=== PATIENT | male | born 1935 | race Caucasian/White ===

== ENCOUNTER 2020-02-16 12:45 | Emergency (ER) | payer OTHER ==
[2020-02-16 13:54] LABS: APPEARANCE,URINE Clear (CLEAR); BILIRUBIN,URINE Negative (NEGATIVE); COLOR,URINE Yellow (YELLOW); GLUCOSE, URINE (UA) Negative (NEGATIVE); KETONES,URINE Trace mg/dL (NEGATIVE); LEUKOCYTE ESTERASE ,URINE Negative (NEGATIVE); NITRATE,URINE Negative (NEGATIVE); OCCULT BLOOD,URINE Negative (NEGATIVE); PROTEIN,URINE Negative (NEGATIVE)
[2020-02-16 14:09] LABS: BASOPHILS % (AUTO) 0.9 % (0.0-5.0); EOSINOPHILS % (AUTO) 8.6 % (0.0-8.0); HEMATOCRIT 39.2 % (42-54); LYMPHOCYTES % (AUTO) 21.4 % (21.0-51.0); MEAN CORPUSCULAR HEMOGLOBIN 30.2 pg (27.0-33.0); MEAN CORPUSCULAR HGB CONC 33.7 g/dL (32.0-36.0); MEAN CORPUSCULAR VOLUME 89.7 fL (79-99); MONOCYTES % (AUTO) 7.2 % (3.0-13.0); NEUTROPHILS % (AUTO) 61.4 % (40.0-77.0); PLATELET COUNT (AUTO) 219 K/uL (130-400); RED BLOOD CELL COUNT(AUTO) 4.37 MIL/uL (4.50-6.20); RED CELL DISTRIBUTION WIDTH 12.3 % (11.0-15.5); WHITE BLOOD COUNT (AUTO) 9.4 K/uL (4.8-10.8)
[2020-02-16 14:24] LABS: CREATININE 1.2 mg/dL (0.5-1.5); POTASSIUM 4.5 mmol/L (3.5-5.1)
[2020-02-16 14:29] LABS: ALBUMIN 4.2 g/dL (3.5-5.0); BILIRUBIN,TOTAL 0.4 mg/dL (0.2-1.0); TOTAL PROTEIN, SERUM 7.1 g/dL (6.0-8.3)
[2020-02-16 14:32] LABS: BACTERIA,URINE Rare /HPF (None Seen); RBC,URINE None Seen /HPF (0-1); SQUAMOUS EPITHELIAL CELL,UR 0-2 /HPF (0-2); WBC,URINE None Seen /HPF (0-1)
== END 2020-02-16 16:24 | disposition home or self-care (01) ==
LOC: EDBD 12:45 → EDH 12:45
DX: R33.9 Retention of urine, unspecified (principal); E11.9 Type 2 diabetes mellitus without complications; Z90.49 Acquired absence of other specified parts of digestive tract; Z88.6 Allergy status to analgesic agent; Z87.891 Personal history of nicotine dependence
CPT/HCPCS: 36415; 51702; 80053; 81001; 85025; 87088

== ENCOUNTER 2022-01-09 08:13 | Day surgery (SDC) | payer MEDICARE, OTHER ==
[2022-01-06 10:40] VITALS: BP_SYST 149; BP_SYST 164; BP_DIAS 78; BP_DIAS 82
[2022-01-06 11:10] LABS: BASOPHILS % (AUTO) 1.1 % (0.0-5.0); EOSINOPHILS % (AUTO) 12.1 % (0.0-8.0); HEMATOCRIT 41.9 % (42-54); LYMPHOCYTES % (AUTO) 29.1 % (21.0-51.0); MEAN CORPUSCULAR HEMOGLOBIN 29.7 pg (27.0-33.0); MEAN CORPUSCULAR HGB CONC 33.4 g/dL (32.0-36.0); MONOCYTES % (AUTO) 8.6 % (3.0-13.0); NEUTROPHILS % (AUTO) 48.6 % (40.0-77.0); PLATELET COUNT (AUTO) 198 K/uL (130-400); RED BLOOD CELL COUNT(AUTO) 4.71 MIL/uL (4.50-6.20); RED CELL DISTRIBUTION WIDTH 12.9 % (11.0-15.5); WHITE BLOOD COUNT (AUTO) 10.2 K/uL (4.8-10.8)
[2022-01-06 11:18] LABS: POTASSIUM 4.9 mmol/L (3.5-5.1)
[2022-01-09] VITALS (16 sets, daily range): BP systolic 108–135; BP diastolic 64–74
[~2022-01-09] VITALS: Ht 172.7 cm; Wt 102.1 kg
[~2022-01-09 08:13] MED LIST: AEC81 PO; AMIL5TAB8 PO; CYAN50009 PO; DUTA.5 PO; ICOS1CAP PO; L.AC1CAP6 PO; LORA10TA7 PO; METO-408 PO; MV-M1TAB20 PO; PRAV20TA4 PO; SITA1TAB6 PO; TAMS-1 PO; UBID100C10 PO
[2022-01-09] MEDS ORDERED: 0.9%NACL 1000ML 1,000 ML IV ONE (09:24)
[2022-01-09] MEDS ORDERED: CEFTRIAXONE 1G VIAL ONE (09:24)
[2022-01-09] MEDS: CEFTRIAXONE 1G VIAL IVP ONE ×2 (09:28→12:36)
[2022-01-09] MEDS ORDERED: MIDAZOLAM HCL 1 MG/ML 2ML VIAL ONE (11:37)
[2022-01-09] MEDS ORDERED: FENTANYL CITRATE PF 50 MCG/1 ML 2ML VIAL ONE ×2 (11:37→12:23)
[2022-01-09] MEDS ORDERED: ONDANSETRON 4MG INJ ONE (11:37)
[2022-01-09] MEDS ORDERED: LIDOCAINE PF 100MG/5ML (2%) SYRINGE 5ML ONE (11:42)
[2022-01-09] MEDS ORDERED: PROPOFOL 10 MG/ML 20ML VIAL IV ONE (11:42)
[2022-01-09] MEDS ORDERED: ROCURONIUM 10MG/1ML SYR 10 MG/ML ML ONE (11:43)
[2022-01-09] MEDS ORDERED: OPIUM/BELLADONNA ALKALOIDS 1 EACH SUPP.RECT RC ONE (12:27)
[2022-01-09] MEDS ORDERED: NEOSTIGMINE 5MG/5ML SYR IV ONE (12:39)
[2022-01-09] MEDS ORDERED: GLYCOPYRROLATE 1 MG/5 ML SYRINGE ONE (12:39)
[2022-01-09] MEDS ORDERED: PHENAZOPYRIDINE HCL 200 MG TABLET ONE (13:57)
== END 2022-01-09 14:30 | disposition home or self-care (01) ==
LOC: DAH 08:13
PROVIDERS: ATTEND Urology
DX: N40.1 Benign prostatic hyperplasia with lower urinary tract symptoms (principal); R33.8 Other retention of urine; R35.1 Nocturia; I10 Essential (primary) hypertension; E11.9 Type 2 diabetes mellitus without complications; N13.8 Other obstructive and reflux uropathy; Z79.899 Other long term (current) drug therapy; Z88.6 Allergy status to analgesic agent; Z87.891 Personal history of nicotine dependence; Z79.84 Long term (current) use of oral hypoglycemic drugs; Z98.890 Other specified postprocedural states
CPT/HCPCS: 36415; 52648; 80048; 82948 ×2; 85025; 87635; 93005; A4215; A4221; A4222; A4223; A4340; A4354; A4358; A4510; A4600; A4663; A5113; A6260; C9803; J0696; J2001; J2250; J2405; J2704; J2710; J3010 ×2; J3490; J7030; J7120

== ENCOUNTER → 2022-11-20 | Outpatient (CLI) | payer MEDICARE ==
[~2022-11-20] MED LIST changes: -AEC81 PO; -AMIL5TAB8 PO; -CYAN50009 PO; +DILT180C63 PO; -DUTA.5 PO; -ICOS1CAP PO; +IOHEXOL 350 MG/ML 100ML INFUS..BTL IV ONE; -L.AC1CAP6 PO; +LEVO-70 PO; -METO-408 PO; -MV-M1TAB20 PO; -PRAV20TA4 PO; +RIVA2.5T PO; -SITA1TAB6 PO; -UBID100C10 PO
== END | disposition home or self-care (01) ==
LOC: RAH 11:19
PROVIDERS: ATTEND Family Medicine
DX: J44.9 Chronic obstructive pulmonary disease, unspecified (principal)
CPT/HCPCS: 71270; Q9967

== ENCOUNTER 2023-10-07 18:18 | Inpatient (IN) | payer MEDICARE ==
[~2023-10-07] VITALS: Ht 172.7 cm; Wt 87.3 kg
[~2023-10-07 18:18] MED LIST changes: -IOHEXOL 350 MG/ML 100ML INFUS..BTL IV ONE
[2023-10-07 19:15] LABS: CREATININE 1.4 mg/dL (0.5-1.5); POTASSIUM 5.6 mmol/L (3.5-5.1)
[2023-10-07 19:19] LABS: ALBUMIN 4.6 g/dL (3.5-5.0); BILIRUBIN,TOTAL 0.6 mg/dL (0.2-1.0); TOTAL PROTEIN, SERUM 8.6 g/dL (6.0-8.3)
[2023-10-07 19:27] LABS: BASOPHILS # (AUTO) 0.02 K/uL (0.00-0.20); BASOPHILS % (AUTO) 0.2 % (0.0-5.0); EOSINOPHILS # (AUTO) 0.01 K/uL (0.00-0.70); EOSINOPHILS % (AUTO) 0.1 % (0.0-8.0); HEMATOCRIT 45.3 % (42-54); IMMATURE GRANULOCYTE ABSOLUTE 0.11 K/uL (0-1); LYMPHOCYTES # (AUTO) 0.5 K/uL (1.0-4.8); LYMPHOCYTES % (AUTO) 4.1 % (21.0-51.0); MEAN CORPUSCULAR HEMOGLOBIN 28.4 pg (27.0-33.0); MEAN CORPUSCULAR VOLUME 88.8 fL (79-99); MONOCYTES # (AUTO) 0.1 K/uL (0.1-1.0); NEUTROPHILS # (AUTO) 11.7 K/uL (1.8-7.7); NEUTROPHILS % (AUTO) 93.7 % (40.0-77.0); PLATELET COUNT (AUTO) 175 K/uL (130-400); RED CELL DISTRIBUTION WIDTH 15.5 % (11.0-15.5); WHITE BLOOD COUNT (AUTO) 12.4 K/uL (4.8-10.8)
[2023-10-07] MEDS ORDERED: FAMOTIDINE 20MG VIAL IV ONE (20:30)
[2023-10-07] MEDS ORDERED: ONDANSETRON 4MG INJ IVP ONE (20:30)
[2023-10-07] MEDS ORDERED: MORPHINE 2 MG SYG IVP ONE (20:30)
[2023-10-07] MEDS ORDERED: INSULIN HUMULIN R 100 UNIT/ML 3ML IV ONE (20:30)
[2023-10-07] MEDS ORDERED: ZOSYN 3.375GM +NS 50ML IVPB ONE (21:00)
[2023-10-07 21:19] LABS: ABG BASE EXCESS -22.3 mmol/L (-2.0-3.0); ABG HCO3 6.1 mmol/L (21.0-28.0); ABG OXYGEN SATURATION 95.9 % (95.0-99.0); ABG PCO2 22 mmHg (35-48); ABG PH 7.073 (7.35-7.450); DEVICE COMMENT R BRACHIAL RA; PO2, ARTERIAL BG 94.4 mmHg (83.0-108.0); VENT MODE, BG RN MALDONADO RA (ROOM AIR)
[2023-10-07 21:24] LABS: APPEARANCE,URINE CLEAR (CLEAR); BILIRUBIN,URINE NEGATIVE (NEGATIVE); COLOR,URINE LIGHT-YELLOW (YELLOW); GLUCOSE, URINE (UA) >=1000 mg/dL (NEGATIVE); KETONES,URINE 150 mg/dL (NEGATIVE); LEUKOCYTE ESTERASE ,URINE NEGATIVE Leu/uL (NEGATIVE); NITRATE,URINE NEGATIVE (NEGATIVE); PROTEIN,URINE 20 mg/dL (NEGATIVE); UROBILINOGEN,URINE 0.2 mg/dL (0.2-1.0)
[2023-10-07 21:25] LABS: ADD UA MICROSCOPIC YES
[2023-10-07 21:29] LABS: MUCUS,URINE RARE LPF (None Seen); WBC,URINE 0-1 /HPF (0-1)
[2023-10-07] MEDS ORDERED: 0.9%NACL 1000ML 1,000 ML IV ONE (21:30)
[2023-10-07] MEDS ORDERED: INSULIN REGULAR, HUMAN 3ML 100 UNIT in 0.9%NACL 100ML 99 ML IV STA ×2 (21:34)
[2023-10-07] MEDS ORDERED: MEPERIDINE-PF 25 MG/ML SYG IM PRN (22:00)
[2023-10-07] MEDS ORDERED: MORPHINE 2 MG SYG IV PRN (22:00)
[2023-10-07] MEDS ORDERED: INSULIN REGULAR, HUMAN 3ML 100 UNIT in 0.9%NACL 100ML 100 ML IV SCH ×2 (22:00)
[2023-10-07] MEDS ORDERED: ONDANSETRON 4MG INJ IV PRN (22:00)
[2023-10-07] MEDS ORDERED: POTASSIUM CHLORIDE 10MEQ/100ML 100 ML IV PRN (22:00)
[2023-10-07] MEDS ORDERED: MEPERIDINE-PF 25 MG/ML SYG IVP PRN (22:00)
[2023-10-07] MEDS ORDERED: MORPHINE 4 MG SYG IV PRN (22:00)
[2023-10-07] MEDS ORDERED: ACETAMINOPHEN 325 MG TAB PO PRN ×2 (22:00)
[2023-10-07] MEDS ORDERED: MAGNESIUM 2GM PREMIX 50ML 50 ML IV SCH (22:00)
[2023-10-07] MEDS ORDERED: 0.9%NACL 1000ML 1,000 ML IV SCH (22:00)
[2023-10-07 22:27] LABS: CREATININE 1.4 mg/dL (0.5-1.5); POTASSIUM 5.1 mmol/L (3.5-5.1)
[2023-10-07] MEDS: SODIUM BICARB 50MEQ 50ML VIAL 150 MEQ in DEXTROSE 5%-WATER 1,000 ML IVPB SCH (22:27)
[2023-10-08] VITALS (56 sets, daily range): BP systolic 97–142; BP diastolic 56–75; PULSE 87–116; RESP 10–20; O2SAT 96–98
[2023-10-08 01:28] LABS: CREATININE 1.3 mg/dL (0.5-1.5); POTASSIUM 4.9 mmol/L (3.5-5.1)
[2023-10-08] MEDS: SODIUM BICARB 50MEQ 50ML VIAL 150 MEQ in DEXTROSE 5%-WATER 1,000 ML IVPB SCH ×2 (03:23→23:59)
[2023-10-08] MEDS: D5W-1/2 NS/20MEQ KCL 1,000 ML IV SCH ×2 (05:08→09:19)
[2023-10-08] MEDS ORDERED: TAMS-1 PO (06:47)
[2023-10-08] MEDS ORDERED: FAMO40TA7 PO (06:47)
[2023-10-08] MEDS ORDERED: DUTA0.5C37 PO (06:47)
[2023-10-08] MEDS ORDERED: PRAV40TA3 PO (06:47)
[2023-10-08] MEDS ORDERED: SITA1TAB6 PO (06:47)
[2023-10-08] MEDS ORDERED: METO25TA6 PO ×2 (06:47)
[2023-10-08] MEDS ORDERED: MULT-1367 PO (06:47)
[2023-10-08] MEDS ORDERED: LORA10TA7 PO (06:47)
[2023-10-08] MEDS ORDERED: DAPA5TAB PO (06:47)
[2023-10-08] MEDS ORDERED: ASPI-1197 PO (06:47)
[2023-10-08] MEDS ORDERED: BISA-189 PO (06:47)
[2023-10-08 07:01] LABS: BASOPHILS # (AUTO) 0.02 K/uL (0.00-0.20); BASOPHILS % (AUTO) 0.2 % (0.0-5.0); EOSINOPHILS # (AUTO) 0.03 K/uL (0.00-0.70); EOSINOPHILS % (AUTO) 0.3 % (0.0-8.0); HEMATOCRIT 36.9 % (42-54); IMMATURE GRANULOCYTE ABSOLUTE 0.08 K/uL (0-1); LYMPHOCYTES # (AUTO) 0.8 K/uL (1.0-4.8); LYMPHOCYTES % (AUTO) 6.9 % (21.0-51.0); MEAN CORPUSCULAR HEMOGLOBIN 28.2 pg (27.0-33.0); MEAN CORPUSCULAR HGB CONC 33.6 g/dL (32.0-36.0); MEAN CORPUSCULAR VOLUME 84.1 fL (79-99); MONOCYTES # (AUTO) 0.3 K/uL (0.1-1.0); MONOCYTES % (AUTO) 2.8 % (3.0-13.0); NEUTROPHILS # (AUTO) 10.7 K/uL (1.8-7.7); NEUTROPHILS % (AUTO) 89.1 % (40.0-77.0); PLATELET COUNT (AUTO) 158 K/uL (130-400); RED BLOOD CELL COUNT(AUTO) 4.39 MIL/uL (4.50-6.20); RED CELL DISTRIBUTION WIDTH 15.4 % (11.0-15.5)
[2023-10-08 07:12] LABS: CREATININE 1.2 mg/dL (0.5-1.5); PHOSPHORUS 2.5 mg/dL (2.5-4.9); POTASSIUM 4.2 mmol/L (3.5-5.1)
[2023-10-08] MEDS: ENOXAPARIN SODIUM 40 MG/0.4 ML SYRINGE SQ SCH (09:19)
[2023-10-08] MEDS: FAMOTIDINE 20MG VIAL IV SCH (09:19)
[2023-10-08 10:30] LABS: CREATININE 1.2 mg/dL (0.5-1.5); POTASSIUM 4.1 mmol/L (3.5-5.1)
[2023-10-08] MEDS: AZITHROMYCIN 500MG+NS 250ML 250 ML IVPB SCH (13:56)
[2023-10-08] MEDS: ZOSYN 3.375GM +NS 50ML IV SCH ×2 (13:56→20:40)
[2023-10-08 15:28] LABS: POTASSIUM 4.9 mmol/L (3.5-5.1)
[2023-10-08] MEDS ORDERED: LACTATED RINGERS 1000ML IV ONE (16:00)
[2023-10-08 19:39] LABS: CREATININE 1.1 mg/dL (0.5-1.5)
[2023-10-08] MEDS: ATORVASTATIN 10 MG TABLET PO SCH (20:40)
[2023-10-08] MEDS: METOPROLOL TARTRATE 25 MG TAB PO SCH (20:43)
[2023-10-08 23:09] LABS: POTASSIUM 3.5 mmol/L (3.5-5.1)
[2023-10-09] VITALS (19 sets, daily range): BP systolic 94–131; BP diastolic 50–82; PULSE 85–119; RESP 9–20; O2SAT 95–96
[2023-10-09 01:01] LABS: POTASSIUM 3.5 mmol/L (3.5-5.1)
[2023-10-09 01:10] LABS: ABG BASE EXCESS 1.1 mmol/L (-2.0-3.0); ABG HCO3 24.7 mmol/L (21.0-28.0); ABG OXYGEN SATURATION 95.3 % (95.0-99.0); ABG PCO2 36 mmHg (35-48); ABG PH 7.453 (7.35-7.450); PO2, ARTERIAL BG 72.1 mmHg (83.0-108.0); VENT MODE, BG ROOM AIR (ROOM AIR)
[2023-10-09] MEDS: D5W-1/2 NS/20MEQ KCL 1,000 ML IV SCH (01:54)
[2023-10-09 04:26] LABS: BASOPHILS # (AUTO) 0.02 K/uL (0.00-0.20); BASOPHILS % (AUTO) 0.2 % (0.0-5.0); EOSINOPHILS # (AUTO) 0.32 K/uL (0.00-0.70); EOSINOPHILS % (AUTO) 3.2 % (0.0-8.0); HEMATOCRIT 37.8 % (42-54); IMMATURE GRANULOCYTE ABSOLUTE 0.05 K/uL (0-1); LYMPHOCYTES # (AUTO) 0.8 K/uL (1.0-4.8); LYMPHOCYTES % (AUTO) 7.9 % (21.0-51.0); MEAN CORPUSCULAR HEMOGLOBIN 27.8 pg (27.0-33.0); MEAN CORPUSCULAR HGB CONC 33.6 g/dL (32.0-36.0); MEAN CORPUSCULAR VOLUME 82.7 fL (79-99); MONOCYTES # (AUTO) 0.2 K/uL (0.1-1.0); MONOCYTES % (AUTO) 1.7 % (3.0-13.0); NEUTROPHILS # (AUTO) 8.7 K/uL (1.8-7.7); NEUTROPHILS % (AUTO) 86.5 % (40.0-77.0); PLATELET COUNT (AUTO) 134 K/uL (130-400); RED BLOOD CELL COUNT(AUTO) 4.57 MIL/uL (4.50-6.20); RED CELL DISTRIBUTION WIDTH 15.2 % (11.0-15.5)
[2023-10-09 04:36] LABS: CREATININE 0.9 mg/dL (0.5-1.5); POTASSIUM 3.3 mmol/L (3.5-5.1)
[2023-10-09] MEDS ORDERED: POTASSIUM CHLORIDE 10MEQ/100ML 100 ML IV ONE (05:29)
[2023-10-09] MEDS ORDERED: 0.9%NACL 1000ML 1,000 ML IV SCH (05:30)
[2023-10-09] MEDS: ZOSYN 3.375GM +NS 50ML IV SCH ×3 (06:13→20:57)
[2023-10-09] MEDS: FAMOTIDINE 20MG VIAL IV SCH (07:44)
[2023-10-09] MEDS: TAMSULOSIN HCL 0.4 MG CAP.ER.24H PO SCH (07:44)
[2023-10-09] MEDS: METOPROLOL TARTRATE 25 MG TAB PO SCH ×2 (07:44→20:57)
[2023-10-09] MEDS: THIAMINE HCL 100 MG/ML 2ML VIAL IVP SCH (07:44)
[2023-10-09] MEDS: ENOXAPARIN SODIUM 40 MG/0.4 ML SYRINGE SQ SCH (07:45)
[2023-10-09] MEDS: (Dutasteride 0.5 MG) PO SCH (07:45)
[2023-10-09] MEDS: ASPIRIN 81MG CHEW TAB PO SCH (07:45)
[2023-10-09] MEDS: LORATADINE 10 MG TABLET PO SCH (07:45)
[2023-10-09] MEDS: INSULIN GLARGINE 100 UNITS/ML 10 ML VIAL SQ SCH ×2 (07:46→22:06)
[2023-10-09] MEDS: INSULIN HUMULIN R 100 UNIT/ML 3ML SQ SCH ×4 (07:48→22:09)
[2023-10-09] MEDS ORDERED: POTASSIUM CHLORIDE 10% ELIXIR 20 MEQ/15 ML UDCUP ONE (08:00)
[2023-10-09] MEDS ORDERED: POTASSIUM CHLORIDE 10% ELIXIR 20 MEQ/15 ML UDCUP PO PRN (08:00)
[2023-10-09] MEDS ORDERED: POTASSIUM CHLORIDE 20MEQ/100ML 100 ML IV PRN (08:00)
[2023-10-09] MEDS ORDERED: TRAZODONE HCL 100 MG TABLET PO PRN (11:00)
[2023-10-09] MEDS: AZITHROMYCIN 500MG+NS 250ML 250 ML IVPB SCH (12:03)
[2023-10-09] MEDS: ATORVASTATIN 10 MG TABLET PO SCH (20:57)
[2023-10-10] VITALS (8 sets, daily range): BP systolic 128–154; BP diastolic 70–86; PULSE 83–115; RESP 16–22; O2SAT 96–97
[2023-10-10] MEDS ORDERED: HALOPERIDOL INJ 5 MG/ML VIAL ONE (02:55)
[2023-10-10] MEDS ORDERED: HALOPERIDOL INJ 5 MG/ML VIAL IV SCH (03:00)
[2023-10-10] MEDS: ZOSYN 3.375GM +NS 50ML IV SCH ×3 (03:55→20:11)
[2023-10-10] MEDS: INSULIN HUMULIN R 100 UNIT/ML 3ML SQ SCH ×4 (06:40→21:17)
[2023-10-10] MEDS: INSULIN GLARGINE 100 UNITS/ML 10 ML VIAL SQ SCH ×2 (06:41→21:16)
[2023-10-10 07:00] LABS: BASOPHILS # (AUTO) 0.04 K/uL (0.00-0.20); BASOPHILS % (AUTO) 0.6 % (0.0-5.0); EOSINOPHILS % (AUTO) 4.5 % (0.0-8.0); IMMATURE GRANULOCYTE ABSOLUTE 0.04 K/uL (0-1); LYMPHOCYTES # (AUTO) 0.9 K/uL (1.0-4.8); LYMPHOCYTES % (AUTO) 13.9 % (21.0-51.0); MEAN CORPUSCULAR HEMOGLOBIN 28.6 pg (27.0-33.0); MEAN CORPUSCULAR HGB CONC 33.7 g/dL (32.0-36.0); MEAN CORPUSCULAR VOLUME 84.7 fL (79-99); MONOCYTES # (AUTO) 0.3 K/uL (0.1-1.0); MONOCYTES % (AUTO) 4.1 % (3.0-13.0); NEUTROPHILS # (AUTO) 5.1 K/uL (1.8-7.7); NEUTROPHILS % (AUTO) 76.3 % (40.0-77.0); PLATELET COUNT (AUTO) 139 K/uL (130-400); RED BLOOD CELL COUNT(AUTO) 4.13 MIL/uL (4.50-6.20); RED CELL DISTRIBUTION WIDTH 15.2 % (11.0-15.5); WHITE BLOOD COUNT (AUTO) 6.6 K/uL (4.8-10.8)
[2023-10-10 07:36] LABS: CREATININE 0.7 mg/dL (0.5-1.5); PHOSPHORUS 2.2 mg/dL (2.5-4.9); POTASSIUM 3.4 mmol/L (3.5-5.1)
[2023-10-10 08:20] LABS: MAGNESIUM 1.6 mg/dL (1.80-2.40)
[2023-10-10] MEDS: THIAMINE HCL 100 MG/ML 2ML VIAL IVP SCH (08:51)
[2023-10-10] MEDS: METOPROLOL TARTRATE 25 MG TAB PO SCH ×2 (08:51→20:12)
[2023-10-10] MEDS: FAMOTIDINE 20MG VIAL IV SCH (08:51)
[2023-10-10] MEDS: ASPIRIN 81MG CHEW TAB PO SCH (08:51)
[2023-10-10] MEDS: LORATADINE 10 MG TABLET PO SCH (08:51)
[2023-10-10] MEDS: TAMSULOSIN HCL 0.4 MG CAP.ER.24H PO SCH (08:51)
[2023-10-10] MEDS: (Dutasteride 0.5 MG) PO SCH (08:52)
[2023-10-10] MEDS: ENOXAPARIN SODIUM 40 MG/0.4 ML SYRINGE SQ SCH (08:52)
[2023-10-10] MEDS: KCL 20 MEQ ERTAB PO PRN ×2 (08:52→11:59)
[2023-10-10] MEDS: AZITHROMYCIN 500MG+NS 250ML 250 ML IVPB SCH (11:29)
[2023-10-10] MEDS ORDERED: MAGNESIUM 2GM PREMIX 50ML 50 ML IV SCH (13:30)
[2023-10-10] MEDS: ATORVASTATIN 10 MG TABLET PO SCH (20:12)
[2023-10-11] VITALS (9 sets, daily range): BP systolic 92–127; BP diastolic 59–78; PULSE 92–114; RESP 16–22; O2SAT 94–98
[2023-10-11] MEDS: ZOSYN 3.375GM +NS 50ML IV SCH ×3 (03:43→22:25)
[2023-10-11 04:40] LABS: BASOPHILS # (AUTO) 0.04 K/uL (0.00-0.20); BASOPHILS % (AUTO) 0.6 % (0.0-5.0); EOSINOPHILS # (AUTO) 0.29 K/uL (0.00-0.70); EOSINOPHILS % (AUTO) 4.6 % (0.0-8.0); HEMATOCRIT 36.6 % (42-54); IMMATURE GRANULOCYTE ABSOLUTE 0.04 K/uL (0-1); LYMPHOCYTES # (AUTO) 1.4 K/uL (1.0-4.8); LYMPHOCYTES % (AUTO) 22.7 % (21.0-51.0); MEAN CORPUSCULAR HEMOGLOBIN 28.7 pg (27.0-33.0); MEAN CORPUSCULAR HGB CONC 33.3 g/dL (32.0-36.0); MEAN CORPUSCULAR VOLUME 86.1 fL (79-99); MONOCYTES # (AUTO) 0.5 K/uL (0.1-1.0); MONOCYTES % (AUTO) 7.8 % (3.0-13.0); NEUTROPHILS % (AUTO) 63.7 % (40.0-77.0); PLATELET COUNT (AUTO) 153 K/uL (130-400); RED BLOOD CELL COUNT(AUTO) 4.25 MIL/uL (4.50-6.20); WHITE BLOOD COUNT (AUTO) 6.3 K/uL (4.8-10.8)
[2023-10-11 04:49] LABS: CREATININE 0.8 mg/dL (0.5-1.5); POTASSIUM 3.2 mmol/L (3.5-5.1)
[2023-10-11] MEDS: KCL 20 MEQ ERTAB PO PRN ×3 (05:36→14:16)
[2023-10-11] MEDS: INSULIN HUMULIN R 100 UNIT/ML 3ML SQ SCH ×4 (05:36→22:16)
[2023-10-11] MEDS: LORATADINE 10 MG TABLET PO SCH (09:16)
[2023-10-11] MEDS: ASPIRIN 81MG CHEW TAB PO SCH (09:16)
[2023-10-11] MEDS: TAMSULOSIN HCL 0.4 MG CAP.ER.24H PO SCH (09:16)
[2023-10-11] MEDS: FAMOTIDINE 20MG VIAL IV SCH (09:16)
[2023-10-11] MEDS: ENOXAPARIN SODIUM 40 MG/0.4 ML SYRINGE SQ SCH (09:18)
[2023-10-11] MEDS: THIAMINE HCL 100 MG/ML 2ML VIAL IVP SCH (09:18)
[2023-10-11] MEDS: (Dutasteride 0.5 MG) PO SCH (09:18)
[2023-10-11] MEDS: METOPROLOL TARTRATE 25 MG TAB PO SCH ×2 (09:18→22:26)
[2023-10-11] MEDS: AZITHROMYCIN 500MG+NS 250ML 250 ML IVPB SCH (12:26)
[2023-10-11] MEDS: INSULIN GLARGINE 100 UNITS/ML 10 ML VIAL SQ SCH ×2 (14:27→22:15)
[2023-10-11] MEDS: ATORVASTATIN 10 MG TABLET PO SCH (22:25)
[2023-10-12] MEDS: ZOSYN 3.375GM +NS 50ML IV SCH ×2 (03:57→12:35)
[2023-10-12 04:00] VITALS: BP 111/77; PULSE 103; RESP 16
[2023-10-12 04:55] LABS: BASOPHILS # (AUTO) 0.02 K/uL (0.00-0.20); BASOPHILS % (AUTO) 0.4 % (0.0-5.0); EOSINOPHILS # (AUTO) 0.34 K/uL (0.00-0.70); EOSINOPHILS % (AUTO) 6.3 % (0.0-8.0); HEMATOCRIT 33.6 % (42-54); IMMATURE GRANULOCYTE ABSOLUTE 0.02 K/uL (0-1); LYMPHOCYTES # (AUTO) 1.5 K/uL (1.0-4.8); LYMPHOCYTES % (AUTO) 27.4 % (21.0-51.0); MEAN CORPUSCULAR HEMOGLOBIN 28.5 pg (27.0-33.0); MEAN CORPUSCULAR HGB CONC 33.9 g/dL (32.0-36.0); MONOCYTES # (AUTO) 0.5 K/uL (0.1-1.0); NEUTROPHILS # (AUTO) 3.1 K/uL (1.8-7.7); NEUTROPHILS % (AUTO) 56.5 % (40.0-77.0); PLATELET COUNT (AUTO) 152 K/uL (130-400); RED CELL DISTRIBUTION WIDTH 14.8 % (11.0-15.5); WHITE BLOOD COUNT (AUTO) 5.4 K/uL (4.8-10.8)
[2023-10-12 05:15] LABS: CREATININE 0.7 mg/dL (0.5-1.5); POTASSIUM 3.1 mmol/L (3.5-5.1)
[2023-10-12] MEDS: INSULIN HUMULIN R 100 UNIT/ML 3ML SQ SCH ×2 (05:37→12:32)
[2023-10-12] MEDS: INSULIN GLARGINE 100 UNITS/ML 10 ML VIAL SQ SCH (06:37)
[2023-10-12] MEDS: KCL 20 MEQ ERTAB PO PRN ×3 (06:52→12:35)
[2023-10-12 08:00] VITALS: BP 125/81; PULSE 110; RESP 16
[2023-10-12] MEDS: FAMOTIDINE 20MG VIAL IV SCH (09:00)
[2023-10-12] MEDS: ASPIRIN 81MG CHEW TAB PO SCH (09:00)
[2023-10-12] MEDS: THIAMINE HCL 100 MG/ML 2ML VIAL IVP SCH (09:00)
[2023-10-12] MEDS: TAMSULOSIN HCL 0.4 MG CAP.ER.24H PO SCH (09:00)
[2023-10-12] MEDS: ENOXAPARIN SODIUM 40 MG/0.4 ML SYRINGE SQ SCH (09:00)
[2023-10-12] MEDS: LORATADINE 10 MG TABLET PO SCH (09:00)
[2023-10-12] MEDS: (Dutasteride 0.5 MG) PO SCH (09:00)
[2023-10-12] MEDS: METOPROLOL TARTRATE 25 MG TAB PO SCH (09:00)
[2023-10-12 12:00] VITALS: BP 105/65; PULSE 101; RESP 16
[2023-10-12 12:30] VITALS: O2SAT 98
[2023-10-12] MEDS: AZITHROMYCIN 500MG+NS 250ML 250 ML IVPB SCH (12:35)
== END 2023-10-12 13:45 | disposition home or self-care (01) | DRG 871 ==
LOC: EDH 18:18 → EDHIP 21:49 → 2CV 10-08 08:00 → 2AH 10-09 17:57 → 2DH 10-10 04:22 → 3BH 10-10 17:40
PROVIDERS: ADMIT Internal Medicine; ATTEND Internal Medicine
DX: A41.9 Sepsis, unspecified organism (principal); E11.10 Type 2 diabetes mellitus with ketoacidosis without coma; C34.12 Malignant neoplasm of upper lobe, left bronchus or lung; E87.1 Hypo-osmolality and hyponatremia; D72.829 Elevated white blood cell count, unspecified; E86.0 Dehydration; E87.5 Hyperkalemia; D64.9 Anemia, unspecified; E83.42 Hypomagnesemia; E87.6 Hypokalemia; I25.10 Atherosclerotic heart disease of native coronary artery without angina pectoris; I48.0 Paroxysmal atrial fibrillation; N40.0 Benign prostatic hyperplasia without lower urinary tract symptoms; J40 Bronchitis, not specified as acute or chronic; I12.9 Hypertensive chronic kidney disease with stage 1 through stage 4 chronic kidney disease, or unspecified chronic kidney disease; E78.00 Pure hypercholesterolemia, unspecified; E11.22 Type 2 diabetes mellitus with diabetic chronic kidney disease; Z96.653 Presence of artificial knee joint, bilateral; N18.9 Chronic kidney disease, unspecified; Z51.5 Encounter for palliative care; Z87.891 Personal history of nicotine dependence; Z85.118 Personal history of other malignant neoplasm of bronchus and lung
CPT/HCPCS: 36415; 36600; 71045; 80048; 80053; 81001; 82010; 82435; 82803; 82947; 82948; 83605; 83735; 84100; 84132; 84145; 84295; 84484; 84550; 85018; 85025; 87040; 93005; G0378; J0456; J1630; J1650; J1815; J2270; J2405; J2543; J3411; J3475; J3480; J3490; J7070

== ENCOUNTER → 2024-07-12 | Outpatient (CLI) | payer MEDICARE ==
[~2024-07-12] MED LIST changes: +ASPI-1197 PO; +BISA-189 PO; +DAPA5TAB PO; +DUTA0.5C37 PO; +FAMO40TA7 PO; -LEVO-70 PO; +METO25TA6 PO; +MULT-1367 PO; +PRAV40TA3 PO; +SITA1TAB6 PO
== END | disposition home or self-care (01) ==
LOC: RAH 12:21
PROVIDERS: ATTEND Internal Medicine Cardiovascular Disease
DX: I48.0 Paroxysmal atrial fibrillation (principal)
CPT/HCPCS: 93306

== ENCOUNTER → 2024-08-07 | Outpatient (CLI) | payer MEDICARE ==
[2024-08-07 12:39] LABS: HEMATOCRIT 37.5 % (42-54)
== END | disposition home or self-care (01) ==
LOC: LAB 09:12
PROVIDERS: ATTEND Internal Medicine Cardiovascular Disease
DX: I10 Essential (primary) hypertension (principal); M62.81 Muscle weakness (generalized); I48.0 Paroxysmal atrial fibrillation; Z79.899 Other long term (current) drug therapy
CPT/HCPCS: 36415; 82306; 85014; 85018